=== PATIENT | female | born 1970 | race Caucasian/White ===

== ENCOUNTER 2017-07-06 21:33 | Emergency (ER) | payer OTHER ==
[~2017-07-06] VITALS: Ht 152.4 cm; Wt 70.3 kg
--- NOTE | 2017-07-06 22:02 | ER.PDOC ---
General Chief Complaint: General Complaint Stated Complaint: RUSS PIN ON TONGUE TRAVEL OUT OF US: No Time seen by MD: 21:59 Source: patient Exam Limitations: no limitations History of Present Illness Initial Comments Russ pin stuck in tongue Allergies: Coded Allergies: No Known Allergies (Unverified , 07/06/17) Past Medical History Medical History: diabetes, hypertension Surgical History: LMP (females 10-50): postmenopause Social History Smoking: non-smoker Alcohol Use: none Drug Use: none Review of Systems Constitutional: no symptoms reported EENTM: see HPI Respiratory: no symptoms reported Cardiovascular: no symptoms reported Gastrointestinal: no symptoms reported All Other Systems: Reviewed and Negative Physical Exam General Appearance: No Apparent Distress, WD/WN EENT: other (pin stuck in tip of tongue) Neck: Non-Tender Respiratory: chest non-tender, lungs clear, normal breath sounds, no respiratory distress CVS: reg rate & rhythm, no murmur, no gallop, pulses nml, nml capillary refill Gastrointestinal: Normal Bowel Sounds, No Organomegaly, No Pulsatile Mass, Non Tender Back: Normal Inspection Extremities: Normal Range of Motion Neurologic/Psychiatric: pick up operator II-XII NML as Tested Additional Procedures Progress Pin pulled out from tongue using my hand Departure Time of Disposition: 22:01 Disposition: 01 HOME, SELF-CARE Impression: Primary Impression: Foreign body (FB) in soft tissue Condition: Improved Referrals: PCP,UNKNOWN (PCP) PRIMARY CARE PROVIDER Additional Instructions: F/U with your PCP as needed Duration or Time Spent with Pa: 20 mins MATA DIAL MD Jul 06, 2017 22:02
[2017-07-06 22:04] VITALS: BP 142/89
== END 2017-07-06 22:05 | disposition home or self-care (01) ==
LOC: ER 21:33
DX: S00.552A Superficial foreign body of oral cavity, initial encounter (principal); E11.9 Type 2 diabetes mellitus without complications; I10 Essential (primary) hypertension; W22.8XXA Striking against or struck by other objects, initial encounter; Y93.89 Activity, other specified; Y92.89 Other specified places as the place of occurrence of the external cause; Y99.8 Other external cause status
CPT/HCPCS: 99281